=== PATIENT | male | born 1940 | race Caucasian/White ===

== ENCOUNTER 2022-12-11 22:40 | Emergency (ER) | payer MEDICARE, BC | END 2022-12-12 00:38 | disposition home or self-care (01) | LOC: CSHERS 22:40 | DX: L03.115 Cellulitis of right lower limb (principal) | CPT/HCPCS: 99283 ==

== ENCOUNTER 2025-04-08 08:35 | Outpatient (CLI) | payer MEDICARE | END 2025-04-08 08:36 | disposition home or self-care (01) | LOC: CSHWCC 08:35 | PROVIDERS: ATTEND Nurse Practitioner Family | DX: Z09 Encounter for follow-up examination after completed treatment for conditions other than malignant neoplasm (principal); Z87.2 Personal history of diseases of the skin and subcutaneous tissue; G90.09 Other idiopathic peripheral autonomic neuropathy | CPT/HCPCS: 99212; G0463 ==